=== PATIENT | female | born 1960 | race Caucasian/White ===

== ENCOUNTER → 2016-11-27 | Outpatient (CLI) | payer OTHER ==
[~2016-11-27] VITALS: Ht 162.6 cm; Wt 124.7 kg
[~2016-11-27] MED LIST: ALBUTEROL INH INH; ALLEGRA ALLERG180 MG PO; AMITRIPTYLINE H50 M2 PO; APAP650 PO; ARTIFICIAL TEAR15 M1 OP; ASPIR 8181 MG PO; BACLOFEN 10MG T10 M1 PO; BELLADONNA-OPI1 EACH RC; BENADRYL25 MG PO; BIOTENE MOIST44.3 ML MM; BISACODYL SUPP10 MG RE; CELEXA20 MG PO; CEPACOL SORE T1 EAC2 MM; CITRATE OF MAG296 ML PO; COLACE 100 MG100 MG PO; COLACE100 MG PO; DOLOPHINE HCL5 MG PO; DULCOLAX PO; DUONEB 2.5-0.5 M3 ML INH; EFFEXOR XR150 MG PO; ESTRADIOL PO; EUCERIN CREME120 GM; FAMOTIDINE PO; FLOMAX0.4 MG PO; FLONASE 0.05%50 MCG NS; KLOR-CON 1010 MEQ PO; LASIX 40 MG TAB40 M1 PO; LEVOTHROID75 MCG PO; LEVOTHYROXIN0.075 MG PO; LIDODERM 5%1 PATCH TOP; LISINOPRIL5 MG PO; LOMOTIL TABLET1 EACH PO; MAALOX525 MG/15 PO; MEDROL DOSPAK21 TA1 PO; MICROGESTIN1 EAC1 PO; MILK OF MA2400 MG/10 PO; MIRALAX17 GM PO; MOM PO; MOTRIN PO; MUCINEX TA600 MG/TA1 PO; NORCO 10-325 T1 EACH PO; NORCO 5-325 TA1 EACH PO; NORCO 7.5-3251 EACH PO; NORETHINDRONE ACETATE PO; PAXIL40 MG PO; PHENERGAN 25 MG25 M1 PO; PRILOSEC 20 MG20 MG PO; REQUIP0.5 MG PO; ROBAXIN500 MG PO; SENNA8.6 MG PO; SUDAFED30 MG PO; TRAMADOL 50 MG50 MG PO; VALTREX 500 MG500 M1 PO; VALTREX 500 MG500 MG PO; VITAMIN B-12500 MCG PO; VITAMIN D1000 UNI1 PO; XANAX 0.25 MG0.25 MG PO; ZANAFLEX4 MG PO; ZOCOR40 MG PO; ZOFRAN8 MG PO; [UNRECOGNIZED DRUG - OTHER]
--- NOTE | ~2016-11-27 | HPC ---
[facility] [address] [place] [address] PAIN MANAGEMENT CONSULTATION Name: MACKENZIE FRAUSTO Room #: REG YARONDemetria Gold#: [id number] Admission: 11/27/16 Attend Phys: Mendel Shrestha MD Discharge: Date of : 62 Report #: [id number] THIS REPORT FOR: //name// CC: CLAU Benitez DATE OF SERVICE: 11/27/2016 DATE OF SERVICE: 11/27/2016 Followup visit for intractable pain and spasticity due to cerebral palsy. The patient is here today with sister for refill of intrathecal infusion pump. She lives in a facility. She has been doing reasonably well. Her spasticity is quite well controlled and her pain is also then pretty well. For a while, she was getting daily passive range of motion with the lower extremities, which helped a lot with her pain but they stopped doing that therapy for her. I did write a prescription for her and will see if she can received that at her Medicare/Medicaid facility. It is often times very difficult to get service with short staff at these locations. She continues to report very satisfactory relief of her spasticity with her intrathecal pump. Today, I spent some time with her and her sister reviewing the alarm. The critical alarm intervals is 10 minutes and then noncritical alarm interval is 1 hour. I have made sure that both heard the alarms. They understands what they meant and I have provided some education. Total time spent in consultation with family today was about 25 minutes to 30 minutes. For intrathecal pump, infusing baclofen, morphine and clonidine. Three medications were compounded and provided ____ pharmacy. We have decided to refill her pump today with no adjustment in dose. She is on relatively high doses of baclofen at this time. ____ intrathecal pump is now under 11 months. I have asked for her to plan on replacement of intrathecal pump sometime in the next 11 months. We will discuss that at her next followup. Dr. Felix placed her original pump. I have been managing it since she was sent to me by Dr. Swain in 2010, for addition of morphine, which has worked well. In addition to cerebral palsy, she suffers from no other comorbidities as described below. Her facility physician is managing those carefully. [address] [address] PAIN MANAGEMENT CONSULTATION Name: MACKENZIE FRAUSTO Room #: REG [facility] Asif#: [id number] Admission: 11/27/16 Attend Phys: Mendel Shrestha MD Discharge: Date of : 62 Report #: [id number] On physical exam today, she is in a wheelchair. She is pleasant, alert and oriented. Her spasticity is well controlled. OBJECTIVE: VITAL SIGNS: Blood pressure of 134/77, heart rate is 90, respirations 16. MUSCULOSKELETAL: She is unable to move from sitting to standing position and does not ambulate. Legs are heavy and she has difficulty with active movements. Passive movement showed that her spasticity is moderately well controlled. Light touch discomfort is noted with neuropathy in the legs below the knee. There is mild 2+ edema. IMPRESSION: 1. Chronic intractable pain and spasticity related to severe cerebral palsy. . 2. Chronic depression. 3. Management of intrathecal infusion pump with a combination of clonidine, baclofen, and morphine. 4. Management of high risk medication. 5. Insulin-dependent diabetes. 6. Neurogenic bladder. 7. Hypertension. 8. Hyperlipidemia. 9. Gastroesophageal reflux disease. PLAN: I renewed her intrathecal pump medications and refill procedure was performed. Skin was prepped with ChloraPrep. Skin anesthetized and #22-gauge non-coring needle advanced in the pump. Old medication removed and discarded. Pump was refilled with medications as described above. Followup visit is planned in 3 months. <ELECTRONICALLY SIGNED> By: Mendel Shrestha MD 12/09/16 1130 [id number] Mendel Shrestha MD /nt
[2016-11-27 11:10] VITALS: BP 134/77
== END | disposition home or self-care (01) ==
LOC: PAIN 07:04
DX: G80.1 Spastic diplegic cerebral palsy (principal); G89.29 Other chronic pain; E11.9 Type 2 diabetes mellitus without complications; I10 Essential (primary) hypertension; E78.5 Hyperlipidemia, unspecified; K21.9 Gastro-esophageal reflux disease without esophagitis; N31.9 Neuromuscular dysfunction of bladder, unspecified; F32.9 Major depressive disorder, single episode, unspecified; Z79.4 Long term (current) use of insulin; Z87.891 Personal history of nicotine dependence

== ENCOUNTER → 2017-04-12 | Outpatient (CLI) | payer OTHER ==
[~2017-04-12] VITALS: Ht 162.6 cm; Wt 100.7 kg
[~2017-04-12] MED LIST changes: +ATORVASTATIN CA40 MG PO; +BACLOFEN20 MG PO; +CLARITIN10 MG PO; +FLAGYL500 MG PO; +KETOCONAZOLE60 GM TP; +PULMICORT0.5 MG/22 INH
--- NOTE | ~2017-04-12 | HPC ---
[facility] [place] [address] PAIN MANAGEMENT CONSULTATION Name: MACKENZIE FRAUSTO Room #: REG [facility].#: [id number] Admission: 04/12/17 Attend Phys: Mendel Shrestha MD Discharge: Date of : 62 Report #: [id number] THIS REPORT FOR: //name// CC: CLAU Benitez DATE OF SERVICE: 04/12/2017 Followup visit for refill of intrathecal infusion pump. HISTORY OF PRESENT ILLNESS: The patient's pump was alarming. She has 7 months on her estimated reserve battery life. Even though it is alarming and she is on a fairly high dose of baclofen, it does not appear that she is going through baclofen withdrawal. This raises some questions whether or not her intrathecal catheter is even in place and perhaps she is getting no medication at all since she is not going through withdrawal. The other possibilities of the pump is infusing, it is harder to say in this setting. We are going to refill the pump because we have medication, I will reset it and try and reprogram it and then I have contacted Dr. Felix and we are going to have her pump replaced sooner than later. Dr. Felix put in her original pump. PHYSICAL EXAMINATION: Today, she is pleasant, alert and oriented. She does not appear to be going through a withdrawal. She is in her wheelchair. She has very mild spasticity of the lower extremities. Her chest is clear to auscultation. Her cardiac rhythm is regular. Her blood pressure in the clinic today is 135/93, heart rate is a little elevated at 114. Oxygen saturation is 97%. There is pain across the low back and she scores her pain as an 8/10. Pain radiates down into both legs and feet with burning and a cramping sensation. IMPRESSION: 1. Chronic spasticity with underlying cerebral palsy. 2. Exhaustion of intrathecal pump battery. 3. Chronic depression. 4. Management of high risk medication. PROCEDURE: Pump is refilled in the usual fashion, skin prepped with ChloraPrep. Skin anesthetized. Pump refill with baclofen 3800, clonidine 90 and morphine 5. It was reprogrammed to provide a daily dose of baclofen 1000, morphine 1.3 mg, clonidine 23 mcg. Reprogram suggested to stop pump. ____, but that does not tell us whether or not she is receiving her medicine. The last motor stall occurred and recovered on April 08. She is to call the clinic if she is [place] [address] PAIN MANAGEMENT CONSULTATION Name: TELMA FRAUSTOBETH Cheng Room #: REG [facility] Gold#: [id number] Admission: 04/12/17 Attend Phys: Mendel Shrestha MD Discharge: Date of : 62 Report #: [id number] withdrawal. I have given her baclofen 20 mg #60 one tablet q. 6 hours for treatment of possible baclofen withdrawal and spasticity. Followup visit planned also with Dr. Felix. I will be in touch with him to try and get her scheduled for a pump replacement as soon as possible at [facility]. By: 1637 [id number] Mendel Shrestha MD /nt
[2017-04-12 10:05] VITALS: BP 135/93
== END | disposition home or self-care (01) ==
LOC: PAIN 06:39
DX: Z45.1 Encounter for adjustment and management of infusion pump (principal); G89.29 Other chronic pain; G80.1 Spastic diplegic cerebral palsy; F32.89 Other specified depressive episodes; F11.20 Opioid dependence, uncomplicated; Z87.891 Personal history of nicotine dependence; Z91.040 Latex allergy status; Z88.8 Allergy status to other drugs, medicaments and biological substances; Z98.890 Other specified postprocedural states

== ENCOUNTER → 2017-11-12 | Outpatient (CLI) | payer OTHER ==
[~2017-11-12] VITALS: Ht 162.6 cm; Wt 110.2 kg
[~2017-11-12] MED LIST changes: -BACLOFEN 10MG T10 M1 PO; +BACLOFEN 10MG T10 MG PO; +BUSPIRONE HCL10 MG PO; +CARAFATE 1 GM TA1 G1 PO; +ONDANSETRON HCL4 M2 PO
--- NOTE | ~2017-11-12 | HPC ---
[facility] [place] [address] [place] [address] PAIN MANAGEMENT CONSULTATION Name: MACKENZIE FRAUSTO Room #: REG [facility] Jacob.#: [id number] Admission: 11/12/17 Attend Phys: Mendel Shrestha MD Discharge: Date of : 62 Report #: [id number] THIS REPORT FOR: //name// CC: CLAU Benitez DATE OF SERVICE: 11/12/2017 Followup visit for management of intrathecal infusion pump. I last saw the patient in 03/2017. At that time, we had recommended that she have her pump replaced and it was done shortly thereafter by Dr. Clau Felix. The replacement has gone well. Pump is functioning adequately. She has a complex infusion including baclofen, morphine and clonidine and is here today for refill. No adjustment in dose is required. INTERVAL HISTORY: Shows that she has continued to live at a facility. She has done well. She has not had other hospitalizations. She does have an upper respiratory tract infection, which has been going around and has complained of a cough without fever. Pain today is 7/10; complains of pain in back, both arms, both legs and hands and feet. Intrathecal pump was providing fairly good control of her pain and spasticity. PQRS reviewed. The patient has hypertension and is under treatment by primary care physician at the facility and is on a diuretic. She has diffuse osteoarthritis involving shoulders, hips and knees. She does not smoke. She does take some opioids, but they are not provided through our clinic. We have not reviewed the CDC guidelines today for that purpose. She is wheelchair bound and is not directly a fall risk, but needs to be cautious in her mobility and with transfers. MEDICATIONS: Home medications per the electronic medical record reviewed and reconciled. Drug interactions were reviewed. PHYSICAL EXAMINATION: GENERAL: She is in a wheelchair. She is pleasant, alert and oriented, without signs of depression. She does not appear to be in much spasticity. CHEST: Clear. CARDIAC: Rhythm is regular. VITAL SIGNS: Blood pressure today is 135/68, heart rate is 77, BMI was estimated at 41. [facility] [address] [place] [address] PAIN MANAGEMENT CONSULTATION Name: MACKENZIE FRAUSTO Room #: REG [facility]#: [id number] Admission: 11/12/17 Attend Phys: Mendel Shrestha MD Discharge: Date of : 62 Report #: [id number] IMPRESSION: 1. Chronic spasticity with underlying cerebral palsy. 2. Chronic depression improved since last visit. 3. Management of high risk medication. PROCEDURE: Refill and reprogramming of intrathecal infusion pump. Skin was prepped with ChloraPrep. Skin anesthetized and a 22-gauge non-coring needle advanced in the pump. Old medication removed and discarded. Pump was refilled with baclofen, morphine and clonidine. Daily dose will be baclofen 300 mcg, morphine 0.4 mg and clonidine 7.0 mcg per day. Her low reservoir alarm volume is set at 2 and her refill interval is 475 days. We could probably decrease the concentration to her pump further at next refill. Recommended that she return in 6 months for refill. No medications were ordered today. Followup visit planned in 6 months. <ELECTRONICALLY SIGNED> By: Mendel Shrestha MD 12/26/17 1640 1250 1915 Mendel Shrestha MD /nt
[2017-11-12 10:33] VITALS: BP 115/68
== END | disposition home or self-care (01) ==
LOC: PAIN 07:02
DX: Z45.1 Encounter for adjustment and management of infusion pump (principal); G80.1 Spastic diplegic cerebral palsy; I10 Essential (primary) hypertension; M19.90 Unspecified osteoarthritis, unspecified site; F32.89 Other specified depressive episodes; Z87.891 Personal history of nicotine dependence; Z79.899 Other long term (current) drug therapy; Z91.040 Latex allergy status; Z88.6 Allergy status to analgesic agent; Z79.82 Long term (current) use of aspirin; Z98.890 Other specified postprocedural states

== ENCOUNTER → 2018-09-12 | Outpatient (CLI) | payer OTHER ==
[~2018-09-12] MED LIST changes: +ATIVAN0.5 MG PO; +COMBIVENT INH; +OMEPRAZOLE20 M2 PO; +POTASSIUM20 PO; +PULMICORT0.25 MG/3 INH; +SUPER B-50 COM1 EACH PO; +ZYRTEC10 M5 PO
--- NOTE | ~2018-09-12 | HPC ---
[facility] [address] [place] [address] PAIN MANAGEMENT CONSULTATION Name: MACKENZIE FRAUSTO [facility] [id number] Admission: 09/12/18 Attend Phys: Heike Delgadillo Discharge: Date of : 62 Report #: [id number] THIS REPORT FOR: //name// CC: Heike Benitez MD DATE OF SERVICE: 09/12/2018 CHIEF COMPLAINT: Followup for her management of her intrathecal infusion pump for her chronic spasticity with underlying cerebral palsy. HISTORY OF PRESENT ILLNESS: The patient returns to the pain clinic today for an intrathecal pump refill. The patient's last fill was in October and was noticing a decrease in the efficacy of her medicines stating that her pain has been increasing and rating it as 7/10 today. She still has medicine left in the pump, but because of her increasing pain, we will refill her intrathecal pump today. She tells me that she has tenderness around her pump site from the facility that she lives in with moving her with a Tal lift and has been kind of pushing on her pump, so it is tender to the touch today. Otherwise, she complains of spasticity in her arms, legs, feet and hands. It is a pretty constant level that the medications in her pump do usually help that have been decreasing recently in their efficacy. CURRENT ALLERGIES: LATEX, PREMPRO, CODEINE, NYSTATIN, GABAPENTIN AND LYRICA. CURRENT LIST OF HER MEDICATIONS: Vitamin B complex, Pulmicort, Combivent, Zyrtec, omeprazole, Ativan, Zofran, buspirone, baclofen, Lipitor, vitamin B12, Senokot, MiraLax, milk of magnesia, Lomotil, Synthroid, tizanidine, Requip, Flomax, Celexa, Microgestin, aspirin, hydrocodone, Mucinex, potassium, Lasix, vitamin D, valacyclovir and Flonase. PQRS: Today, she has denied any history of rheumatoid arthritis or osteoarthritis. Her weight is 260 pounds. No height was taken today. Vital signs: Blood pressure 149/85, pulse of 73, respirations 16, oxygen sat is 95%, pain score 7/10. Fall risk, she does have some dizziness, is in a wheelchair, unable to stand or walk, has not fallen in the last 3 months. The patient denies blood thinners, does have a history of hypertension. She is not on any opioids for us. Does have opioid medication in her pump though. Takes some occasionally from her primary care doctor. We do not have a signed contract for her. Her risk assessment is high. Her functional assessment is 58/70. She does not use recreational drugs. She is a former smoker and does not drink alcohol. She is in a wheelchair. Exam: She is pleasant, alert and orientated without signs of depression, having slight increase in her spasticity. Abdomen does [facility] [address] [place] [address] PAIN MANAGEMENT CONSULTATION Name: MACKENZIE FRAUSTO Room #: MAY[facility] Gold#: [id number] Admission: 09/12/18 Attend Phys: Heike Delgadillo Discharge: Date of : 62 Report #: [id number] have tenderness localized in her lower left quadrant, tender to the touch and complains of pressure. Neck has no JVD or adenopathy. Limited range of motion in all of her extremities due to spasticity. IMPRESSION: 1. Chronic spasticity with underlying cerebral palsy. 2. Chronic depression. 3. Management of high-risk medications. PROCEDURE: Refill and reprogramming of intrathecal pump. DESCRIPTION OF PROCEDURE: Skin was prepped with ChloraPrep. Skin anesthetized and a 22-gauge non-coring needle was advanced into the pump on the second attempt. Old medication of 15 mL was removed and discarded via Andrew protocol. Pump was refilled with baclofen, morphine and clonidine. Pump was also increased by 10%. Current settings concentrations are baclofen 330 mcg per day, morphine 0.43 mg per day, clonidine 7.823 mcg per day. Her low reservoir alarm was set to 2, but she will be refilled in 6 months due to the decrease of efficacy of this last refill. So at that time, we will increase her concentrations of morphine and clonidine keeping the baclofen where it is. Hopefully, this will make her refills more appropriate to 6 months. The patient will be refilled in February. No oral medications were ordered today. PLAN: The patient's pump was refilled. Concentrations will be changed at the next refill in February. The patient tolerated procedure, dismissed to home with her sister present. The patient seen in collaboration today with Dr. Mendel Shrestha. <ELECTRONICALLY SIGNED> By: Heike Delgadillo 09/13/18 0715 1059 1400 Heike Delgadillo /apryl
[2018-09-12 09:18] VITALS: BP 149/85
== END | disposition home or self-care (01) ==
LOC: PAIN 04:42
DX: Z45.1 Encounter for adjustment and management of infusion pump (principal); G80.1 Spastic diplegic cerebral palsy; G89.29 Other chronic pain; F32.9 Major depressive disorder, single episode, unspecified; Z79.899 Other long term (current) drug therapy; Z91.040 Latex allergy status; Z88.8 Allergy status to other drugs, medicaments and biological substances; Z79.891 Long term (current) use of opiate analgesic; Z79.82 Long term (current) use of aspirin; Z87.891 Personal history of nicotine dependence

== ENCOUNTER → 2019-03-20 | Outpatient (CLI) | payer OTHER ==
[~2019-03-20] VITALS: Ht 162.6 cm; Wt 117.9 kg
--- NOTE | ~2019-03-20 | HPC ---
[facility] [address] [address] PAIN MANAGEMENT CONSULTATION Name: MACKENZIE FRAUSTO Room #: REG SYLVESTER OlsonJose LuisTerrieJose Luis#: [id number] Admission: 03/20/19 ������������������ Attend Phys: Mendle Shrestha MD Discharge: ������������������ Date of : 62 Report #: [id number] THIS REPORT FOR: //name// CC: Mendel Benitez MD DATE OF SERVICE: 03/20/2019 Followup visit for management of intrathecal infusion pump with refill and reprogramming. The patient is here today after a transport from her nursing facility. Her intrathecal infusion pump needs refill and she has a combination of baclofen, clonidine and morphine, which has been helping with spasticity and chronic pain. Her underlying problem is cerebral palsy. She is now confined to a wheelchair. She reports to the nurses and our clinic that her pain is in her back, both arms, both legs, hands, feet, buttocks and is burning, cramping and aching. She is grateful for the relief that the pump provides and believes that she will be much worse without it. Showing the difficulty in using a pain score to try and follow chronic pain, she scores her pain as an 8/10 while describing her pain as controlled for the most part by her pump. MEDICATIONS: All medications are reviewed and reconciled. ALLERGIES: Reviewed as well. PQRS is positive for potential fall risk due to her cerebral palsy. She requires transfers and full assistance for ADLs. She is on no blood thinner at this time. She is treated for hypertension. Denies use of tobacco and alcohol. Her BMI is estimated at over 35 and she is morbidly obese. She has arthropathy and diffuse joint osteoarthritis. PHYSICAL EXAMINATION: VITAL SIGNS: Blood pressure is 130/92, heart rate 75, respirations 16, O2 sat 94. CHEST: Clear. CARDIAC: Rhythm is regular. Morbid obesity is noted. EXTREMITIES: She has good range of motion of the upper extremities. Lower extremities are heavy and weak. Spasticity is well controlled. IMPRESSION: 1. Chronic spasticity and intractable pain related to underlying cerebral [facility] [address] [place] [address] PAIN MANAGEMENT CONSULTATION Name: MACKENZIE FRAUSTO Room #: REG [facility] Gold#: [id number] Admission: 03/20/19 ������������������ Attend Phys: Mendel Shrestha MD Discharge: ������������������ Date of : 62 Report #: [id number] palsy. 2. History of chronic depression. She seems better to me today. 3. Management of high risk intrathecal pump medications. PROCEDURE: Refill and reprogramming. Skin was prepped with ChloraPrep and anesthetized. A 22-gauge non-coring needle advanced into the intrathecal pump. Old medication removed and discarded under protocol. The pump was then refilled with baclofen, morphine and clonidine. Reprogramming session provides a daily dose of baclofen 329 mcg, morphine 0.55 mg and clonidine 8.6 mcg. Her next refill is scheduled for nearly 1 year. We will try to change her concentrations for her next refill because we bring her in at 6-month intervals. We should be able to lower the concentrations in the pump by 50% and continue to obtain a nice duration of response. Followup visit planned in 6 months. ��������������������������������������������� ���������������������������������������� By: ��������������������������������������������� 1737 [id number] Mendel Shrestha MD /nt
[2019-03-20 13:23] VITALS: BP 130/92
--- NOTE | 2019-03-20 13:25 | NUR ---
Pain Clinic Assessment: 1. History of Osteoarthritis: Not Applicable History of Rheumatoid Arthritis: Not Applicable 2. Height: 5 ft. 4 in. 162.6 cm. Weight: 260.0 lb. oz. 117.936 kg. Patient's BMI: 44.6 3. Vital Signs: BP: 130/92 Pulse: 75 Resp: 16 Temp: 02 Sat: 94 ECG Mon: 4. Pain Intensity: 8 5. Fall Risk: Dizziness: N Needs help standing or walking: N Fallen in the last 3 months: N Fall risk comments: 6. Patient on Blood Thinner: None 7. History of Hypertension: Y 8. Opioid Therapy greater than 6 weeks: N Opiate Contract Signed: 9. Risk Assessment Tool Provided: high 10. Functional Assessment Tool: 58/70 11. Recreational Drug Use: Never Drug Type: Tobacco Use: Former Smoker Tobacco Type: Amount or Packs/day: How Many Years: Alcohol Use: Past use Frequency: Quant:
== END | disposition home or self-care (01) ==
LOC: PAIN 06:58
DX: Z45.1 Encounter for adjustment and management of infusion pump (principal); G80.0 Spastic quadriplegic cerebral palsy; G89.29 Other chronic pain; I10 Essential (primary) hypertension; M19.90 Unspecified osteoarthritis, unspecified site; E66.01 Morbid (severe) obesity due to excess calories; Z79.891 Long term (current) use of opiate analgesic; Z86.59 Personal history of other mental and behavioral disorders; Z68.35 Body mass index [BMI] 35.0-35.9, adult; Z87.891 Personal history of nicotine dependence; Z91.040 Latex allergy status; Z88.8 Allergy status to other drugs, medicaments and biological substances; Z79.899 Other long term (current) drug therapy; Z79.82 Long term (current) use of aspirin

== ENCOUNTER → 2019-09-11 | Outpatient (CLI) | payer OTHER ==
[~2019-09-11] MED LIST changes: -APAP650 PO; +TYLENOL325 MG PO
[2019-09-11 10:14] VITALS: BP 132/91
--- NOTE | 2019-09-11 10:55 | NUR ---
Pain Clinic Assessment: 1. History of Osteoarthritis: HANDS KNEES History of Rheumatoid Arthritis: DENIES 2. Height: ft. in. cm. Weight: 270.0 lb. oz. 122.472 kg. Patient's BMI: 3. Vital Signs: BP: 132/91 Pulse: 74 Resp: 16 Temp: 02 Sat: 95 ECG Mon: 4. Pain Intensity: 8 5. Fall Risk: Dizziness: N Needs help standing or walking: Y Fallen in the last 3 months: N Fall risk comments: 6. Patient on Blood Thinner: None 7. History of Hypertension: Y 8. Opioid Therapy greater than 6 weeks: N Opiate Contract Signed: 9. Risk Assessment Tool Provided: high 10. Functional Assessment Tool: 41/50 11. Recreational Drug Use: Past greater than 3 mos Drug Type: Tobacco Use: Former Smoker Tobacco Type: Amount or Packs/day: How Many Years: Alcohol Use: Past use Frequency: Quant:
== END | disposition home or self-care (01) ==
LOC: PAIN 06:58
DX: Z45.1 Encounter for adjustment and management of infusion pump (principal); G89.29 Other chronic pain; M19.90 Unspecified osteoarthritis, unspecified site; M47.896 Other spondylosis, lumbar region; G80.1 Spastic diplegic cerebral palsy; M54.5 Low back pain; J44.9 Chronic obstructive pulmonary disease, unspecified; E03.9 Hypothyroidism, unspecified; F32.89 Other specified depressive episodes; F41.9 Anxiety disorder, unspecified; E66.01 Morbid (severe) obesity due to excess calories; Z98.890 Other specified postprocedural states; Z79.899 Other long term (current) drug therapy; Z88.8 Allergy status to other drugs, medicaments and biological substances; Z91.040 Latex allergy status; Z68.43 Body mass index [BMI] 50.0-59.9, adult

== ENCOUNTER → 2020-03-25 | Outpatient (CLI) | payer OTHER ==
--- NOTE | ~2020-03-25 | HPC ---
[facility] [address] [place] [address] PAIN MANAGEMENT CONSULTATION Name: MACKENZIE FRAUSTO Room #: REG [facility] JacobJose Luis#: [id number] Admission: 03/25/20 Attend Phys: Mendel Shrestha MD Discharge: Date of : 62 Report #: [id number] THIS REPORT FOR: cc: Olu Benitez MD,Olu Shrestha,Mendel Wilcox MD ~ CC: Mendel Benitez MD DATE OF SERVICE: 03/25/2020 CHIEF COMPLAINT: Chronic pain and spasticity. Management of intrathecal infusion pump. Cerebral palsy. The patient is here today in her wheelchair, wearing a mask due to COVID-19 restrictions. She is here today to refill her intrathecal infusion pump, which I managed for her. She has had intrathecal therapy for well over 10 years. Her therapy was initiated outside of our clinic by another physician. It has been a number of years since I agreed to take over. She is on Medicare, Medicaid and has combination medications for pain and spasticity in her pump. She has responded favorably to a combination of baclofen for spasticity, clonidine and morphine for neuropathic pain. She does not take additional opioid medications. The patient reports that her pain has been adequately controlled over the course of the last several months. We refill her pump at 6-month intervals. PQRS completed today, describes complaints in multiple joints with osteoarthritis. BMI was not registered but her weight estimated in the 270-300 pound range. Blood pressure 143/90, heart rate 74, pain intensity 8/10. This is a fairly standard report for her. She does not stand or walk. She needs help with transfers. She is on no blood thinners, but is treated for hypertension. There is no opioid agreement. She has high risk assessment tool score. She keeps her functional assessment score down to 41/50, which suggests good psychological management of her chronic intractable pain syndrome. Also, this is a fairly optimistic score for someone so debilitated. She denies use of tobacco or alcohol. IMPRESSION: 1. Chronic intractable pain with spasticity. 2. Morbid obesity. 3. Cerebral palsy. 4. Chronic obstructive pulmonary disease. 5. Intrathecal pump therapy with refill reprogramming session. PROCEDURE: Skin was prepped with ChloraPrep and a 22-gauge non-coring needle [address] [address] PAIN MANAGEMENT CONSULTATION Name: MACKENZIE FRAUSTO Room #: REG [facility] Gold#: [id number] Admission: 03/25/20 Attend Phys: Mendel Shrestha MD Discharge: Date of : 62 Report #: [id number] advanced into the intrathecal pump. Old medication removed and discarded per protocol. Pump refilled with a combination of baclofen, morphine and clonidine. Her daily dose remains unchanged at baclofen 347 mcg, morphine 0.6 mg and clonidine 9 mcg per day. Her next refill is scheduled for 6 months. Her FARZANEH on this current pump is at 46 months. By: 1222 1945 Mendel Shrestha MD /nt
[2020-03-25 09:14] VITALS: BP 143/90
--- NOTE | 2020-03-25 09:32 | NUR ---
Pain Clinic Assessment: 1. History of Osteoarthritis: HANDS KNEES History of Rheumatoid Arthritis: DENIES 2. Height: ft. in. cm. Weight: 271.0 lb. oz. 122.925 kg. Patient's BMI: 3. Vital Signs: BP: 143/90 Pulse: 74 Resp: 20 Temp: 02 Sat: 95 ECG Mon: 4. Pain Intensity: 8 5. Fall Risk: Dizziness: N Needs help standing or walking: Y Fallen in the last 3 months: N Fall risk comments: 6. Patient on Blood Thinner: None 7. History of Hypertension: Y 8. Opioid Therapy greater than 6 weeks: N Opiate Contract Signed: 9. Risk Assessment Tool Provided: high 10. Functional Assessment Tool: 41/50 11. Recreational Drug Use: Past greater than 3 mos Drug Type: Tobacco Use: Former Smoker Tobacco Type: Amount or Packs/day: How Many Years: Alcohol Use: Past use Frequency: Quant:
== END | disposition home or self-care (01) ==
LOC: PAIN 06:46
DX: Z45.1 Encounter for adjustment and management of infusion pump (principal); G89.29 Other chronic pain; R25.2 Cramp and spasm; G80.9 Cerebral palsy, unspecified; J44.9 Chronic obstructive pulmonary disease, unspecified; E66.01 Morbid (severe) obesity due to excess calories; Z98.890 Other specified postprocedural states; Z79.899 Other long term (current) drug therapy; Z79.891 Long term (current) use of opiate analgesic

== ENCOUNTER → 2020-11-18 | Outpatient (CLI) | payer OTHER ==
[~2020-11-18] MED LIST changes: +MICROGESTIN FE1 EAC1 PO; +PROBIOTIC1 EAC7 PO
[2020-11-18 13:07] VITALS: BP 120/68
--- NOTE | 2020-11-18 13:33 | NUR ---
Pain Clinic Assessment: 1. History of Osteoarthritis: HANDS KNEES History of Rheumatoid Arthritis: DENIES 2. Height: ft. in. cm. Weight: lb. oz. kg. Patient's BMI: 3. Vital Signs: BP: 120/68 Pulse: 70 Resp: 14 Temp: 02 Sat: 94 ECG Mon: 4. Pain Intensity: 8 5. Fall Risk: Dizziness: N Needs help standing or walking: Y Fallen in the last 3 months: N Fall risk comments: 6. Patient on Blood Thinner: None 7. History of Hypertension: Y 8. Opioid Therapy greater than 6 weeks: N Opiate Contract Signed: 9. Risk Assessment Tool Provided: high 10. Functional Assessment Tool: 41/50 11. Recreational Drug Use: Past greater than 3 mos Drug Type: Tobacco Use: Former Smoker Tobacco Type: Amount or Packs/day: How Many Years: Alcohol Use: Past use Frequency: Quant:
== END | disposition home or self-care (01) ==
LOC: PAIN 06:50
PROVIDERS: ATTEND Anesthesiology Pain Medicine
DX: Z45.1 Encounter for adjustment and management of infusion pump (principal); G89.29 Other chronic pain; R25.2 Cramp and spasm; I10 Essential (primary) hypertension; J44.9 Chronic obstructive pulmonary disease, unspecified; G80.9 Cerebral palsy, unspecified; E66.01 Morbid (severe) obesity due to excess calories; F32.9 Major depressive disorder, single episode, unspecified; M19.90 Unspecified osteoarthritis, unspecified site; Z98.890 Other specified postprocedural states; Z79.899 Other long term (current) drug therapy; Z87.891 Personal history of nicotine dependence; Z91.040 Latex allergy status; Z88.8 Allergy status to other drugs, medicaments and biological substances

== ENCOUNTER → 2021-05-05 | Outpatient (CLI) | payer OTHER ==
[2021-05-05 14:50] VITALS: BP 139/73
--- NOTE | 2021-05-05 15:12 | NUR ---
Pain Clinic Assessment: 1. History of Osteoarthritis: HANDS KNEES History of Rheumatoid Arthritis: DENIES 2. Height: ft. in. cm. Weight: 246.0 lb. oz. 111.585 kg. Patient's BMI: 3. Vital Signs: BP: 139/73 Pulse: 62 Resp: 16 Temp: 02 Sat: 96 ECG Mon: 4. Pain Intensity: 8 5. Fall Risk: Dizziness: N Needs help standing or walking: Y Fallen in the last 3 months: N Fall risk comments: 6. Patient on Blood Thinner: None 7. History of Hypertension: Y 8. Opioid Therapy greater than 6 weeks: N Opiate Contract Signed: 9. Risk Assessment Tool Provided: mod-6 10. Functional Assessment Tool: 47/50 11. Recreational Drug Use: Past greater than 3 mos Drug Type: Tobacco Use: Former Smoker Tobacco Type: Amount or Packs/day: How Many Years: Alcohol Use: Past use Frequency: Quant:
== END | disposition home or self-care (01) ==
LOC: PAIN 09:47
PROVIDERS: ATTEND Anesthesiology Pain Medicine
DX: Z45.1 Encounter for adjustment and management of infusion pump (principal); G89.29 Other chronic pain; G80.9 Cerebral palsy, unspecified; R25.2 Cramp and spasm; J44.9 Chronic obstructive pulmonary disease, unspecified; E66.01 Morbid (severe) obesity due to excess calories; M19.90 Unspecified osteoarthritis, unspecified site; Z98.890 Other specified postprocedural states; Z79.899 Other long term (current) drug therapy; Z87.891 Personal history of nicotine dependence; Z88.8 Allergy status to other drugs, medicaments and biological substances; Z91.040 Latex allergy status; Z88.6 Allergy status to analgesic agent